=== PATIENT | female | born 1935 | race Caucasian/White ===

== ENCOUNTER 2017-08-24 12:12 | Emergency (ER) | payer MEDICARE, OTHER ==
[2017-08-24 12:29] VITALS: PULSE 80; BMI 30.2
[2017-08-24] MEDS ORDERED: guaiFENesin/CODEINE 10 ML UNIT-DOSE CUPS PO ONE (15:22)
[2017-08-24] MEDS: ALBUTEROL SO4 2.5/IPRATROPIUM 0.5 INH SOL 3 ML VIAL.NEB. NEB SCH ×4 (15:30→17:06)
[2017-08-24] MEDS ORDERED: ALBUTEROL SO4 0.083% IH SOL 2.5 MG/3 ML VIAL.NEB. NEB ONE (15:32)
[2017-08-24] MEDS ORDERED: guaiFENesin/CODEINE 5 ML UNIT-DOSE CUPS PO ONE (15:33)
--- NOTE | 2017-08-24 15:50 | PDOC ---
History of Present Illness - General History Source: Patient Exam Limitations: No Limitations - History of Present Illness Initial Comments: CHIEF COMPLAINT: 82 y/o afebrile female with PMH HTN and asthma c/o cough and post-tussive chest pain x 1 week. HISTORY OF PRESENT ILLNESS: The patient states her cough is sometimes productive of clear sputum and it's worse at night. She denies fever, chills, hemoptysis, PEÑA, n/v/d, abd pain, SOB, back pain, hematuria, dysuria. Her daughter is at bedside, providing Bengali translation, informs me that she uses her albuterol inhaler but has another steroid inhaler that she is too afraid to take. PCP is Dr. Saenz Vital signs on arrival are within normal limits. REVIEW OF SYSTEMS: GENERAL/CONSTITUTIONAL: No fever/chills. No weakness. No weight change. HEAD, EYES, EARS, NOSE AND THROAT: No change in vision. No ear pain or discharge. No sore throat. No nasal congestion or runny nose. CARDIOVASCULAR: +post-tussive chest pain. No shortness of breath. RESPIRATORY: +congested cough. No wheezing, or hemoptysis. GASTROINTESTINAL: No abd pain, nausea, vomiting, diarrhea. GENITOURINARY: No dysuria, frequency, or change in urination. MUSCULOSKELETAL: No joint or muscle swelling or pain. No neck or back pain. SKIN: No rash or easy bruising. NEUROLOGIC: No headache, vertigo, loss of consciousness, or loss of sensation. PHYSICAL EXAM: GENERAL: The patient is awake, alert, and fully oriented, in no acute distress. She has a moderately persistent congested sounding cough. HEAD: Normal with no signs of trauma. No TTP of sinuses ENT: Pupils equal, round and reactive to light, extraocular movements intact, sclera anicteric, conjunctiva clear. No nasal congestion LUNGS: Expiratory wheezing in posterior driver. Normal excursion. No respiratory distress or use of accessory muscles. CV: RRR, S1/S2, no MRG. Cap refill < 2 sec. ABDOMEN: Soft, non-distended, non-tender even to deep palpation, no hepatomegaly or splenomegaly, no masses. EXTREMITIES: Normal range of motion, no edema. NEUROLOGICAL: Normal speech, normal gait. CN II-XII grossly intact. PSYCH: Normal mood, normal affect. SKIN: Warm, dry, normal turgor, no rashes or lesions noted. <Caryn Valladares - Last Filed: 08/24/17 17:21> <Fox Carballo - Last Filed: 08/26/17 07:35> - General Chief Complaint: Respiratory Stated Complaint: COUGH Time Seen by Provider: 08/24/17 13:37 Past History - Past Medical History COPD: Yes Diabetes: No HTN: Yes - Suicide/Smoking/Psychosocial Hx Smoking History: Never smoked <Caryn Valladares - Last Filed: 08/24/17 17:21> <Fox Carballo - Last Filed: 08/26/17 07:35> - Past Medical History Allergies/Adverse Reactions: Allergies Allergy/AdvReac Type Severity Reaction Status Date / Time aspirin Allergy Verified 08/24/17 12:22 Penicillins Allergy Verified 08/24/17 12:22 Home Medications: Ambulatory Orders Albuterol 0.083% Nebulizer Kristel [Ventolin 0.083% Nebulizer Soln -] 1 neb NEB Q4H PRN #50 vial 08/24/17 Albuterol Sulfate Inhaler - [Ventolin HFA Inhaler -] 1 puff IN QID PRN 08/24/17 Guaifenesin AC [Robitussin AC] 10 ml PO HS #100 ml MDD 30 08/24/17 Lisinopril [Prinivil -] 40 mg PO DAILY 08/24/17 Montelukast Sodium [Singulair] 20 mg PO DAILY 08/24/17 Nebulizer [Aeroeclipse II] 1 each MC Q4H PRN #1 each 08/24/17 Verapamil HCl [Verapamil ER] 180 mg PO DAILY 08/24/17 *Physical Exam - Vital Signs Last Vital Signs Temp Pulse Resp BP Pulse Ox 98.6 F 80 18 140/71 100 08/24/17 12:17 08/24/17 12:17 08/24/17 12:17 08/24/17 12:17 08/24/17 12:17 <Caryn Valladares - Last Filed: 08/24/17 17:21> - Vital Signs Last Vital Signs Temp Pulse Resp BP Pulse Ox 98.2 F 80 16 130/78 94 L 08/24/17 17:45 08/24/17 17:45 08/24/17 17:45 08/24/17 17:45 08/24/17 17:45 <Fox Carballo - Last Filed: 08/26/17 07:35> Moderate Sedation - Procedure Monitoring Vital Signs: Vital Signs Temp Pulse Resp BP Pulse Ox 98.2 F 80 16 130/78 94 L 08/24/17 17:45 08/24/17 17:45 08/24/17 17:45 08/24/17 17:45 08/24/17 17:45 <Fox Carballo - Last Filed: 08/26/17 07:35> ED Treatment Course - RADIOLOGY Radiology Studies Ordered: Category Date Time Status CHEST PA & LAT [RAD] Stat Radiology 08/24/17 15:22 Ordered - Medications Given in the ED: ED Medications Discontinued Medications Generic Name Dose Route Start Last Admin Trade Name Freq PRN Reason Stop Dose Admin Guaifenesin/Codeine Phosphate 10 ml 08/24/17 15:22 08/24/17 15:30 Robitussin Ac - PO 08/24/17 15:23 10 ml ONCE ONE Administration <Caryn Valladares - Last Filed: 08/24/17 17:21> - Medications Given in the ED: ED Medications Discontinued Medications Generic Name Dose Route Start Last Admin Trade Name Freq PRN Reason Stop Dose Admin Albuterol/Ipratropium 1 amp 08/24/17 15:30 08/24/17 17:06 Duoneb - NEB 08/24/17 16:16 1 amp Q15M IVA Administration Guaifenesin/Codeine Phosphate 10 ml 08/24/17 15:22 08/24/17 15:30 Robitussin Ac - PO 08/24/17 15:23 10 ml ONCE ONE Administration <Fox Carballo - Last Filed: 08/26/17 07:35> Medical Decision Making - Medical Decision Making A/P: 82 y/o afebrile female with what sounds like an asthma exacerbation/ allergic cough x 1 week. She has not taken anything for the cough. Plan is as follows: 1. CXR 2. Duoneb 3. Robitussin AC CXR IMPRESSION: (wet read). No acute process the patient states she feels better after duoneb and robitussin. Suspect this is an asthma exacerbation/bronchitis. Plan is to discharge to home with rx for nebulizer/albuterol and robitussin AC. Instructed the patient's daughter to have her take the robitussin only at night as it can cause drowsiness. Strongly encouraged her to take her steroid inhaler at home as prescribed. Instructed her to keep her appointment with Dr. Saenz scheduled for Saturday , 08/28 and return to the ER with any worsening or concerning symptoms. The patient and her daughter verbalize understanding of all instructions, have no further questions and are awaiting discharge. <Caryn Valladares - Last Filed: 08/24/17 17:21> - Medical Decision Making The patient was seen and evaluated in conjunction with KMI Valladares under my direct supervision, ancillary studies were reviewed.I agree with the plan as outlined by KIM Valladares . <Fox Carballo - Last Filed: 08/26/17 07:35> *DC/Admit/Observation/Transfer <Caryn Valladares - Last Filed: 08/24/17 17:21> <Fox Carballo - Last Filed: 08/26/17 07:35> Diagnosis at time of Disposition: Cough Asthma exacerbation Qualifiers: Asthma severity: unspecified severity Asthma persistence: unspecified Qualified Code(s): J45.901 - Unspecified asthma with (acute) exacerbation - Discharge Dispostion Disposition: HOME Condition at time of disposition: Improved - Prescriptions Prescriptions: Albuterol 0.083% Nebulizer Kristel [Ventolin 0.083% Nebulizer Soln -] 1 neb NEB Q4H PRN #50 vial PRN Reason: Cough Guaifenesin AC [Robitussin AC] 10 ml PO HS #100 ml MDD 30 Nebulizer [Aeroeclipse II] 1 each MC Q4H PRN #1 each PRN Reason: Cough - Referrals Referrals: Edwina Saenz MD [Primary Care Provider] - (Keep appointment scheduled for 08/28/17.) - Patient Instructions Printed Discharge Instructions: DI for Asthma -- Adult, DI for Cough -- Adult Additional Instructions: Discharge Instructions: -2 prescriptions have been sent to [facility] pharmacy for you; please take as prescribed -Take your home inhalers as prescribed -Please keep follow up appointment with Dr. Saenz scheduled for 08/28/17 -Return to the ER with any worsening or concerning symptoms - Post Discharge Activity
[2017-08-24 17:57] VITALS: BP 130/78; TEMP 98.2
== END 2017-08-24 17:55 | disposition home or self-care (01) ==
LOC: JER 12:12
PROC: 3E0F7GC Introduction of Other Therapeutic Substance into Respiratory Tract, Via Natural or Artificial Opening (ICD-10-PCS; principal; 2017-08-24)
DX: J45.901 Unspecified asthma with (acute) exacerbation (principal); J44.9 Chronic obstructive pulmonary disease, unspecified; I10 Essential (primary) hypertension
CPT/HCPCS: 71046-TC-FY; 94640; 99282-25; J7620

== ENCOUNTER 2021-01-03 16:59 | Emergency (ER) | payer OTHER ==
[2021-01-03 17:09] VITALS: BP 120/60; PULSE 70; TEMP 97.7; BMI 32.2
[2021-01-03] MEDS ORDERED: ACETAMINOPHEN 1000 MG/100 ML VIAL (NON FORMULARY) IVPB ONE (17:47)
[2021-01-03] MEDS ORDERED: SODIUM CHLORIDE 1,000 ML IV SCH (18:00)
[2021-01-03] MEDS ORDERED: ACETAMINOPHEN INJECTION 100 ML IVPB ONE (18:16)
[2021-01-03 18:24] LABS: BASO % 0.8 % (0-2.0); EOS % 1.2 % (0-4.5); HEMATOCRIT 36.9 % (32.4-45.2); HEMOGLOBIN 11.6 GM/dL (10.7-15.3); LYMPH % 26.9 % (8-40); MCHC 31.3 g/dl (32.0-36.0); MEAN CELL VOLUME 99.2 fl (80-96); MEAN PLT VOLUME 10.3 fl (7.5-11.1); MONO % 7.4 % (3.8-10.2); NEUT % 63.7 % (42.8-82.8); PLATELET COUNT 207 10^3/uL (134-434); RBC 3.73 M/mm3 (3.60-5.2); RDW 14.9 % (11.6-15.6); WHITE BLOOD COUNT 8.2 K/mm3 (4.0-10.0)
[2021-01-03 18:44] LABS: ALBUMIN 3.4 g/dl (3.4-5.0); BLOOD UREA NITROGEN 23.2 mg/dL (7-18); CALCIUM 9.3 mg/dL (8.5-10.1)
[2021-01-03 18:48] LABS: CREATININE 1.5 mg/dL (0.55-1.3)
[2021-01-03 18:49] LABS: BILIRUBIN,TOTAL 0.5 mg/dL (0.2-1); TOT PROT 8.1 g/dl (6.4-8.2)
[2021-01-03 19:58] LABS: URINE APPEARANCE CLEAR; URINE BILIRUBIN NEGATIVE (NEGATIVE); URINE COLOR YELLOW; URINE GLUCOSE (UA) NEGATIVE (NEGATIVE); URINE KETONE TRACE (NEGATIVE); URINE LEUK ESTERASE NEGATIVE (NEGATIVE); URINE NITRITE NEGATIVE (NEGATIVE); URINE PROTEIN NEGATIVE (NEGATIVE); URINE UROBILINOGEN 0.2 mg/dL (0.2-1.0)
== END 2021-01-03 21:54 | disposition home or self-care (01) ==
LOC: JER 16:59
PROC: 3E0333Z Introduction of Anti-inflammatory into Peripheral Vein, Percutaneous Approach (ICD-10-PCS; principal; 2021-01-03)
DX: R10.84 Generalized abdominal pain (principal)
CPT/HCPCS: 36415; 74176-TC; 80053; 81003; 85025; 86850; 86900; 86901; 93005; 93010; 96374; 99285-25; J0131

== ENCOUNTER 2022-11-11 11:30 | Inpatient (IN) | payer OTHER ==
[2022-11-11 12:54] LABS: BASO % 0.7 % (0-2.0); EOS % 2.4 % (0-4.5); HEMATOCRIT 35.6 % (32.4-45.2); HEMOGLOBIN 11.2 GM/dL (10.7-15.3); LYMPH % 23.7 % (8-40); MCH 30.6 pg (25.7-33.7); MCHC 31.5 g/dl (32.0-36.0); MEAN CELL VOLUME 97.2 fl (80-96); MEAN PLT VOLUME 10.1 fl (7.5-11.1); MONO % 7.8 % (3.8-10.2); NEUT % 65.4 % (42.8-82.8); PLATELET COUNT 177 10^3/uL (134-434); RBC 3.66 M/mm3 (3.60-5.2); RDW 14.7 % (11.6-15.6); WHITE BLOOD COUNT 6.5 K/mm3 (4.0-10.0)
[2022-11-11 13:30] LABS: CHLORIDE 112 mmol/L (98-107); SODIUM 142 mmol/L (136-145)
[2022-11-11 13:32] LABS: ALBUMIN 3.2 g/dl (3.4-5.0); BLOOD UREA NITROGEN 49.2 mg/dL (7-18); CALCIUM 9.1 mg/dL (8.5-10.1); CO2 25 mmol/L (21-32); GLUCOSE,RANDOM 125 mg/dL (74-106); MAGNESIUM 1.8 mg/dL (1.8-2.4)
[2022-11-11 13:35] LABS: SGPT/ALT 16 U/L (13-61)
[2022-11-11 13:36] LABS: SGOT/AST 21 U/L (15-37)
[2022-11-11 13:37] LABS: BILIRUBIN,TOTAL 0.3 mg/dL (0.2-1); TOT PROT 7.4 g/dl (6.4-8.2)
[2022-11-11 13:38] LABS: ALK PHOS 94 U/L (45-117)
[2022-11-11 13:42] LABS: ANION GAP 5 MMOL/L (8-16); POTASSIUM 6.2 mmol/L (3.5-5.1)
[2022-11-11] MEDS ORDERED: CALCIUM GLUCONATE 10% - 1,000 MG/10 ML VIAL IVPUSH ONE (13:50)
[2022-11-11] MEDS ORDERED: ALBUTEROL SO4 0.083% IH SOL 2.5 MG/3 ML VIAL.NEB. NEB ONE ×2 (13:50→14:15)
[2022-11-11] MEDS ORDERED: INSULIN REGULAR HUMAN 100 UNITS/ML *VIAL SQ ONE (13:52)
[2022-11-11] MEDS ORDERED: DEXTROSE 50%-WATER - 25 GM/50 ML VIAL IVPUSH ONE (13:52)
[2022-11-11] MEDS ORDERED: LACTATED RINGERS SOLUTION 1000 ML INFUS.BAG IV ONE (13:54)
[2022-11-11] MEDS ORDERED: CALCIUM GLUCONATE 10% - 1,000 MG/10 ML VIAL ONE (14:15)
[2022-11-11] MEDS ORDERED: DEXTROSE 50%-WATER 25 GM/50 ML DISP.SYRIN ONE (14:16)
[2022-11-11] MEDS ORDERED: SODIUM ZIRCONIUM CYCLOSILICATE (LOKELMA) 10 GM PACKET ONE (14:42)
[2022-11-11] MEDS: SODIUM ZIRCONIUM CYCLOSILICATE (LOKELMA) 5 GM PACKET PO SCH (14:59)
[2022-11-11] MEDS ORDERED: ALBUTEROL SO4 2.5/IPRATROPIUM 0.5 INH SOL 3 ML VIAL.NEB. NEB PRN (15:11)
[2022-11-11] MEDS ORDERED: DEXTROSE 5%-0.45% SALINE 1,000 ML IV SCH ×2 (15:15→19:00)
[2022-11-11] MEDS ORDERED: HEPARIN NA (PORCINE) 5,000 UNITS/ML 1ML VIAL ONE ×2 (17:52→21:57)
[2022-11-11] MEDS: HEPARIN NA (PORCINE) 5,000 UNITS/ML 1ML VIAL SQ SCH ×2 (18:28→22:05)
[2022-11-11 19:12] LABS: URINE APPEARANCE CLEAR; URINE BILIRUBIN NEGATIVE (NEGATIVE); URINE COLOR YELLOW; URINE GLUCOSE (UA) TRACE (NEGATIVE); URINE KETONE NEGATIVE (NEGATIVE); URINE LEUK ESTERASE NEGATIVE (NEGATIVE); URINE NITRITE NEGATIVE (NEGATIVE); URINE PROTEIN NEGATIVE (NEGATIVE); URINE UROBILINOGEN 0.2 mg/dL (0.2-1.0)
[2022-11-11] MEDS ORDERED: PANTOPRAZOLE 40 MG TABLET PO ONE (21:37)
[2022-11-11] MEDS ORDERED: MIRTAZAPINE 15 MG TABLET (FP) ONE (21:37)
[2022-11-11] MEDS: PANTOPRAZOLE 40 MG TABLET PO SCH (21:44)
[2022-11-11] MEDS: MIRTAZAPINE 15 MG TABLET (FP) PO SCH (21:44)
[2022-11-12] MEDS ORDERED: HEPARIN NA (PORCINE) 5,000 UNITS/ML 1ML VIAL ONE ×2 (05:51→15:46)
[2022-11-12] MEDS: HEPARIN NA (PORCINE) 5,000 UNITS/ML 1ML VIAL SQ SCH ×3 (05:59→21:19)
[2022-11-12 06:46] LABS: BASO % 0.7 % (0-2.0); EOS % 2.8 % (0-4.5); HEMATOCRIT 32.7 % (32.4-45.2); LYMPH % 34.9 % (8-40); MCH 30.1 pg (25.7-33.7); MCHC 30.5 g/dl (32.0-36.0); MEAN CELL VOLUME 98.7 fl (80-96); MEAN PLT VOLUME 10.3 fl (7.5-11.1); MONO % 10.3 % (3.8-10.2); NEUT % 51.3 % (42.8-82.8); PLATELET COUNT 162 10^3/uL (134-434); RBC 3.32 M/mm3 (3.60-5.2); RDW 14.5 % (11.6-15.6)
[2022-11-12 07:57] LABS: BILIRUBIN,TOTAL 0.1 mg/dL (0.2-1); BLOOD UREA NITROGEN 41.7 mg/dL (7-18); CALCIUM 8.9 mg/dL (8.5-10.1); CREATININE 1.8 mg/dL (0.55-1.3); TOT PROT 6.4 g/dl (6.4-8.2)
[2022-11-12] MEDS ORDERED: SODIUM POLYSTYRENE SULFONATE 15 GM/60 ML BOTTLE RC ONE (08:12)
[2022-11-12] MEDS ORDERED: SODIUM ZIRCONIUM CYCLOSILICATE (LOKELMA) 5 GM PACKET PO SCH (10:00)
[2022-11-12] MEDS ORDERED: amLODIPine BESYLATE 10 MG TABLET (FP) PO SCH (10:00)
[2022-11-12] MEDS ORDERED: SODIUM ZIRCONIUM CYCLOSILICATE (LOKELMA) 10 GM PACKET PO SCH (10:45)
[2022-11-12] MEDS ORDERED: SODIUM POLYSTYRENE SULFONATE 15 GM/60 ML BOTTLE ONE (11:39)
[2022-11-12] MEDS ORDERED: amLODIPine BESYLATE 5 MG TABLET (FP) ONE (11:39)
[2022-11-12] MEDS ORDERED: SODIUM ZIRCONIUM CYCLOSILICATE (LOKELMA) 10 GM PACKET ONE (11:39)
[2022-11-12] MEDS ORDERED: PANTOPRAZOLE 40 MG TABLET PO ONE (11:39)
[2022-11-12] MEDS: PANTOPRAZOLE 40 MG TABLET PO SCH ×2 (11:50→21:19)
[2022-11-12] MEDS: amLODIPine BESYLATE 5 MG TABLET (FP) PO SCH (11:50)
[2022-11-12] MEDS ORDERED: MONTELUKAST NA 10 MG TABLET ONE (11:56)
[2022-11-12] MEDS: DEXTROSE 5%-0.45% SALINE 1,000 ML IV SCH (12:01)
[2022-11-12] MEDS: MONTELUKAST NA 10 MG TABLET PO SCH (12:01)
[2022-11-12] MEDS: SODIUM ZIRCONIUM CYCLOSILICATE (LOKELMA) 5 GM PACKET PO SCH ×2 (12:02→21:50)
[2022-11-12] MEDS ORDERED: SODIUM POLYSTYRENE SULFONATE 15 GM/60 ML BOTTLE PO ONE (14:04)
[2022-11-12] MEDS: MIRTAZAPINE 15 MG TABLET (FP) PO SCH (21:20)
[2022-11-12 23:23] VITALS: BMI 35.2
[2022-11-13] MEDS: HEPARIN NA (PORCINE) 5,000 UNITS/ML 1ML VIAL SQ SCH ×3 (06:35→21:02)
[2022-11-13 08:38] LABS: BASO % 0.7 % (0-2.0); EOS % 3.6 % (0-4.5); HEMATOCRIT 33.3 % (32.4-45.2); HEMOGLOBIN 10.2 GM/dL (10.7-15.3); MCH 30.2 pg (25.7-33.7); MCHC 30.6 g/dl (32.0-36.0); MEAN CELL VOLUME 98.7 fl (80-96); MEAN PLT VOLUME 10.7 fl (7.5-11.1); MONO % 9.3 % (3.8-10.2); NEUT % 53.4 % (42.8-82.8); PLATELET COUNT 167 10^3/uL (134-434); RBC 3.37 M/mm3 (3.60-5.2); RDW 14.6 % (11.6-15.6); WHITE BLOOD COUNT 5.6 K/mm3 (4.0-10.0)
[2022-11-13 08:55] LABS: CHLORIDE 116 mmol/L (98-107); SODIUM 147 mmol/L (136-145)
[2022-11-13 08:56] LABS: CALCIUM 8.9 mg/dL (8.5-10.1)
[2022-11-13 08:57] LABS: BLOOD UREA NITROGEN 28.5 mg/dL (7-18); CO2 26 mmol/L (21-32); GLUCOSE,RANDOM 98 mg/dL (74-106)
[2022-11-13 09:01] LABS: CREATININE 1.5 mg/dL (0.55-1.3)
[2022-11-13 09:23] LABS: ANION GAP 5 MMOL/L (8-16); POTASSIUM 6.6 mmol/L (3.5-5.1)
[2022-11-13] MEDS: amLODIPine BESYLATE 5 MG TABLET (FP) PO SCH (09:57)
[2022-11-13] MEDS: MONTELUKAST NA 10 MG TABLET PO SCH (09:57)
[2022-11-13] MEDS: PANTOPRAZOLE 40 MG TABLET PO SCH ×2 (09:57→21:03)
[2022-11-13] MEDS: SODIUM ZIRCONIUM CYCLOSILICATE (LOKELMA) 5 GM PACKET PO SCH ×2 (09:58→21:02)
[2022-11-13] MEDS: DEXTROSE 5%-0.45% SALINE 1,000 ML IV SCH ×2 (09:58→15:05)
[2022-11-13] MEDS ORDERED: SODIUM POLYSTYRENE SULFONATE 15 GM/60 ML BOTTLE PO ONE (11:00)
[2022-11-13] MEDS ORDERED: SODIUM CHLORIDE 1,000 ML IV STA (13:30)
[2022-11-13] MEDS ORDERED: FUROSEMIDE 40 MG TABLET (FP) PO ONE (15:00)
[2022-11-13] MEDS ORDERED: SODIUM BICARBONATE 8.4% 50 MEQ/50 ML DISP.SYRIN IVPUSH ONE (15:00)
[2022-11-13] MEDS ORDERED: CALCIUM GLUCONATE 10% - 1,000 MG/10 ML VIAL IVPB ONE (15:00)
[2022-11-13 16:29] LABS: POTASSIUM 5.4 mmol/L (3.5-5.1)
[2022-11-13 16:33] LABS: BLOOD UREA NITROGEN 25.5 mg/dL (7-18)
[2022-11-13 16:36] LABS: CREATININE 1.4 mg/dL (0.55-1.3)
[2022-11-13] MEDS ORDERED: LOPERAMIDE HCL 2 MG CAPSULE PO PRN (18:54)
[2022-11-13] MEDS: MIRTAZAPINE 15 MG TABLET (FP) PO SCH (21:03)
[2022-11-14] MEDS: HEPARIN NA (PORCINE) 5,000 UNITS/ML 1ML VIAL SQ SCH ×3 (06:23→21:49)
[2022-11-14 08:00] LABS: BASO % 0.6 % (0-2.0); EOS % 3.6 % (0-4.5); HEMATOCRIT 32.3 % (32.4-45.2); HEMOGLOBIN 10.1 GM/dL (10.7-15.3); LYMPH % 27.8 % (8-40); MCH 30.6 pg (25.7-33.7); MCHC 31.2 g/dl (32.0-36.0); MEAN CELL VOLUME 98.1 fl (80-96); MEAN PLT VOLUME 11.3 fl (7.5-11.1); MONO % 10.9 % (3.8-10.2); NEUT % 57.1 % (42.8-82.8); PLATELET COUNT 157 10^3/uL (134-434); RBC 3.29 M/mm3 (3.60-5.2); RDW 13.8 % (11.6-15.6); WHITE BLOOD COUNT 6.1 K/mm3 (4.0-10.0)
[2022-11-14 08:19] LABS: POTASSIUM 5.4 mmol/L (3.5-5.1)
[2022-11-14 08:26] LABS: BLOOD UREA NITROGEN 21.1 mg/dL (7-18); CALCIUM 8.6 mg/dL (8.5-10.1)
[2022-11-14 08:30] LABS: CREATININE 1.5 mg/dL (0.55-1.3)
[2022-11-14] MEDS: MONTELUKAST NA 10 MG TABLET PO SCH (09:15)
[2022-11-14] MEDS: SODIUM ZIRCONIUM CYCLOSILICATE (LOKELMA) 5 GM PACKET PO SCH ×2 (09:15→21:50)
[2022-11-14] MEDS: amLODIPine BESYLATE 5 MG TABLET (FP) PO SCH (09:15)
[2022-11-14] MEDS ORDERED: FUROSEMIDE 40 MG TABLET (FP) PO ONE (09:15)
[2022-11-14] MEDS: PANTOPRAZOLE 40 MG TABLET PO SCH ×2 (09:42→21:51)
[2022-11-14] MEDS: DEXTROSE 5%-0.45% SALINE 1,000 ML IV SCH ×2 (09:47→14:02)
[2022-11-14] MEDS ORDERED: SODIUM POLYSTYRENE SULFONATE 15 GM/60 ML BOTTLE PO ONE (11:12)
[2022-11-14] MEDS: MIRTAZAPINE 15 MG TABLET (FP) PO SCH (21:51)
[2022-11-15] MEDS: DEXTROSE 5%-0.45% SALINE 1,000 ML IV SCH (00:58)
[2022-11-15] MEDS: HEPARIN NA (PORCINE) 5,000 UNITS/ML 1ML VIAL SQ SCH ×3 (05:11→21:16)
[2022-11-15 07:44] LABS: BASO % 0.7 % (0-2.0); EOS % 3.2 % (0-4.5); HEMATOCRIT 31.9 % (32.4-45.2); HEMOGLOBIN 10.3 GM/dL (10.7-15.3); MCH 30.7 pg (25.7-33.7); MCHC 32.3 g/dl (32.0-36.0); MEAN CELL VOLUME 95.1 fl (80-96); MEAN PLT VOLUME 10.7 fl (7.5-11.1); MONO % 7.4 % (3.8-10.2); NEUT % 60.7 % (42.8-82.8); PLATELET COUNT 157 10^3/uL (134-434); RBC 3.35 M/mm3 (3.60-5.2); RDW 13.8 % (11.6-15.6); WHITE BLOOD COUNT 6.5 K/mm3 (4.0-10.0)
[2022-11-15 08:37] LABS: POTASSIUM 3.7 mmol/L (3.5-5.1)
[2022-11-15 08:46] LABS: CALCIUM 7.8 mg/dL (8.5-10.1)
[2022-11-15 08:47] LABS: BLOOD UREA NITROGEN 18.3 mg/dL (7-18)
[2022-11-15 08:51] LABS: CREATININE 1.5 mg/dL (0.55-1.3)
[2022-11-15] MEDS: amLODIPine BESYLATE 5 MG TABLET (FP) PO SCH (10:19)
[2022-11-15] MEDS: PANTOPRAZOLE 40 MG TABLET PO SCH ×2 (10:19→21:16)
[2022-11-15] MEDS: MONTELUKAST NA 10 MG TABLET PO SCH (10:19)
[2022-11-15] MEDS: SODIUM ZIRCONIUM CYCLOSILICATE (LOKELMA) 5 GM PACKET PO SCH (11:51)
[2022-11-15] MEDS: MIRTAZAPINE 15 MG TABLET (FP) PO SCH (21:16)
[2022-11-16] MEDS: HEPARIN NA (PORCINE) 5,000 UNITS/ML 1ML VIAL SQ SCH (05:44)
[2022-11-16 06:32] VITALS: RESP 16
[2022-11-16 07:45] LABS: BASO % 0.6 % (0-2.0); EOS % 3.9 % (0-4.5); HEMATOCRIT 31.3 % (32.4-45.2); HEMOGLOBIN 10.1 GM/dL (10.7-15.3); LYMPH % 36.2 % (8-40); MCH 30.6 pg (25.7-33.7); MCHC 32.2 g/dl (32.0-36.0); MEAN CELL VOLUME 94.9 fl (80-96); MEAN PLT VOLUME 10.5 fl (7.5-11.1); NEUT % 51.3 % (42.8-82.8); PLATELET COUNT 160 10^3/uL (134-434); RDW 14.3 % (11.6-15.6); WHITE BLOOD COUNT 5.1 K/mm3 (4.0-10.0)
[2022-11-16 08:18] LABS: BLOOD UREA NITROGEN 17.4 mg/dL (7-18)
[2022-11-16 08:19] LABS: CALCIUM 7.6 mg/dL (8.5-10.1)
[2022-11-16 08:21] LABS: CREATININE 1.5 mg/dL (0.55-1.3)
[2022-11-16] MEDS: MONTELUKAST NA 10 MG TABLET PO SCH (09:53)
[2022-11-16] MEDS: amLODIPine BESYLATE 5 MG TABLET (FP) PO SCH (09:53)
[2022-11-16] MEDS: PANTOPRAZOLE 40 MG TABLET PO SCH (09:53)
[2022-11-16 09:56] VITALS: BP 124/59; PULSE 73; TEMP 98.2
[2022-11-16] MEDS ORDERED: SODIUM ZIRCONIUM CYCLOSILICATE (LOKELMA) 5 GM PACKET PO SCH (10:00)
== END 2022-11-16 10:45 | disposition home or self-care (01) | DRG 641 ==
LOC: JER 11:30 → JERBED 14:35 → J4W 11-12 19:57
PROVIDERS: ADMIT Internal Medicine; ATTEND Internal Medicine
DX: E87.5 Hyperkalemia (principal); N17.9 Acute kidney failure, unspecified; I13.0 Hypertensive heart and chronic kidney disease with heart failure and stage 1 through stage 4 chronic kidney disease, or unspecified chronic kidney disease; I50.32 Chronic diastolic (congestive) heart failure; J45.909 Unspecified asthma, uncomplicated; E86.0 Dehydration; E88.09 Other disorders of plasma-protein metabolism, not elsewhere classified; N18.9 Chronic kidney disease, unspecified; E11.22 Type 2 diabetes mellitus with diabetic chronic kidney disease; E11.65 Type 2 diabetes mellitus with hyperglycemia; K59.00 Constipation, unspecified; T46.4X5A Adverse effect of angiotensin-converting-enzyme inhibitors, initial encounter; G47.00 Insomnia, unspecified; E66.9 Obesity, unspecified; Z68.35 Body mass index [BMI] 35.0-35.9, adult
CPT/HCPCS: 36415; 76775-TC; 76856-TC; 80048; 80053; 81003; 82570; 82607; 82962; 83735; 84156; 85025; 87086; 93005; 93010; 97116-GP; 97161-GP; 99285-25; J1644